=== PATIENT | female | born 1960 | race Caucasian/White ===

== ENCOUNTER → 2016-06-15 | Outpatient (CLI) | payer OTHER ==
[2015-05-12 14:20] VITALS: BP 101/66; PULSE 62
[~2016-06-15] MED LIST: ACET-1256 PO; BNT10 PO; LACTCAP PO; QSTP PO; RSPS5 PO; VNCS125 PO; ZOLP10TA PO
[2016-06-15 12:42] VITALS: BP 102/66; PULSE 64; TEMP 36.8; O2SAT 97
--- NOTE | 2016-06-15 13:58 | Radiation Oncology Follow-Up ---
Radiation Oncology Follow-Up Date of Visit Jun 15, 2016. Reason For Visit Annual follow-up Radiation Completion Date 07/07/14 Diagnosis (1) Breast cancer Status: Resolved Onset Date: 06/05/2013 Histology Subtype: ductal Stage: ll (A) Permanent Comment: Status post ultrasound-guided biopsy of the right breast revealing invasive ductal carcinoma grade 3 estrogen receptor negative progesterone receptor negative HER-2/kirsten negative Status post bilateral mastectomies with tissue expanders placed 07/08/2013. Stage [id number] BRCA1 testing positive Status post completion of chemotherapy comprised of Adriamycin and Cytoxan for 4 cycles followed by weekly Taxol for 12 weeks Chemotherapy from 08/26/2013 to 01/14/2014 Status post completion of radiation therapy 07/07/2014 received 6120 cGy Status post placement of bilateral implants November 2015 DT distance and removal of the right implant January 2016 Last Edited By: Kayy Law on Jun 15, 2016 13:51 History of Present Illness Ms. Killian is a 56-year-old female who has a strong family history of breast cancer. Her mother was diagnosed with a triple negative node negative breast cancer treated with surgery, chemotherapy and radiation. Her sister was also diagnosed with breast cancer. Because of this she was followed very closely with annual screening mammograms. These have remained unremarkable until recently. On 05/31/2013 she underwent annual screening mammograms. These were compared to prior images from 05/30/2012 and . The images of the right breast revealed an oval mass with circumscribed margins present in the upper outer quadrant. The left breast revealed no significant masses. This was given a category 0 with additional imaging recommended. Therefore on 06/04/2013 patient underwent a unilateral right digital diagnostic mammogram and targeted ultrasound. This revealed a solid mass measuring 0.7 x 0.9 x 0.8 cm at the 10 o' clock position of the right breast 5 cm from the nipple. These were felt to be suspicious and a biopsy was recommended. On 06/05/2013 patient underwent an ultrasound-guided biopsy of the right breast mammographic abnormality.. 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 This lesion was ER negative, SD negative and HER-2/ kirsten negative. Surgical evaluation was recommended. Given the patient's strong family history she decided to proceed with bilateral mastectomies and reconstruction with tissue expanders. This surgery was performed on July 082013. The right breast revealed residual infiltrating ductal carcinoma measuring 1.5 cm. The margins were negative with the nearest margin being the deep margin 7 mm from the carcinoma. Lymphovascular invasion was identified but no perineural invasion was noted. 2 sentinel lymph nodes were identified one of which contained a macro metastasis and additional 20 lymph nodes were removed with completion axillary dissection. All remaining nodes were negative. The final count was 1 lymph node out of 22 examined. The size of the deposit was 3.5 mm and no extranodal extension was identified. The left breast was examined and revealed an atypical epithelial proliferation consistent with a ductal carcinoma in situ. Case: [id number]. The staging of the right breast lesion was T1c N1 A ER negative SD negative HER-2/kirsten negative. The staging of the left breast was Tis Nx ER positive. The patient was seen by Dr. Edwin Gee for medical oncology evaluation. He ordered a staging PET/CT scan which was performed on 08/07/2013. This showed low level activity surrounding the surgical changes involving both chest wall. Low level uptake corresponds to postsurgical change in the right axilla. An FDG avid lymph node is noted in the upper mediastinum located between the superior vena cava and brachiocephalic artery with a maximum SUV of 4.99. Similar FDG avid lymph nodes are present within the prevascular, AP window, subcarinal, paratracheal and bilateral hilar chains. FDG uptake of the subcarinal lymph node has an SUV max of 6.8 and in the right hilum and SUV max of 6.8. Remainder of the study is unremarkable. BRCA1 and BRCA2 analysis was performed on the patient. She was positive for a germ line BRCA1 mutation. Her mother was subsequently tested and also tested positive. She underwent a bronchoscopy and ultrasoundguided biopsies of lymph node 7, right interlobar 11 R and left interlobar 12 L. All lymph node in the mediastinum were benign. Patient unfortunately developed an infection in the right breast implant requiring removal of the implant and initiation of systemic antibiotics. She underwent chemotherapy with Adriamycin and Cytoxan for 4 cycles this was then followed by weekly Taxol. She was treated from 08/26/2013 to 01/14/2014. Interim History In November 2015 she had removal of the tissue expanders and placement of the permanent implants. Unfortunately she developed an open area along the incision on the right. This area was surgically repaired. Unfortunately 3 small areas opened. She also developed diverticulosis and diverticulitis and required hospitalization. This was treated and she developed Clostridium difficile. She was hospitalized once again. Because of the wound opening's the implant was removed. The area then healed without difficulty. She had followed with Dr. Castrejon. Because of a change in her insurance she was not able to return to him in follow-up. She also had to change from Dr. Edwin Gee to Dr. Nava. She was seen in his office today. Allergies Coded Allergies: Erythromycin (Verified Allergy, Mild, RASH, 02/23/16) Sulfa Antibiotics (Verified Allergy, Mild, RASH, 02/23/16) Home Medications Scheduled Lactobacillus (Lactobacillus Extra Stren), 1 TAB PO TIDM Scheduled PRN Acetaminophen (Tylenol), 1,000 MG PO Q6 PRN for Pain Zolpidem Tartrate (Ambien), 10 MG PO HS PRN for Sleep Review of Systems Gastrointestinal: Symptoms: WNL Oral: Symptoms: No Problems Respiratory: Symptoms: WNL Urinary: Symptoms: WNL Skin: Symptoms: No Problems Other Skin Symptoms: thinned out - patient had to have implant removed due to scar opening Breast: Right Upper Arm Measurement: 28.2 Right Mid Arm Measurement: 26.4 Right Wrist Measurement: 15.9 Left Upper Arm Measurement: 24.7 Left Mid Arm Measurement: 21.0 Left Wrist Measurement: 15.0 Arm Dominence: Left Cosmetic Comments: patient had breast implants pt will have add surg Left make it smaller Physical Exam Vital Signs Date Time Temp Pulse Resp B/P Pulse Ox O2 Delivery O2 Flow Rate FiO2 06/15/16 12:42 36.8 64 16 102/66 97 Pain: Pain Onset: long time Pain Duration: intermet Pain Location: Back Patient Pain Scale: 0 - 10 Initial Pain Intensity: 4.0 Pain Description: Aching Fatigue: None General Appearance: no apparent distress Eyes: normal inspection, EOMI ENT: normal ENT inspection, hearing grossly normal Neck: no adenopathy, thyroid normal Respiratory/Chest: lungs clear, no respiratory distress, no accessory muscle use Breast: Breast examination reveals postmastectomy incision on the right. There is no erythema or edema. There is expected deficit centrally from removal of the implant. There are no masses or tenderness of the chest wall. There is no axillary adenopathy. Using the Emily score cosmesis she currently has a poor outcome. There is some mild resolving hyperpigmentation. On the left the implant is noted. There are no masses or tenderness no axillary adenopathy. Cardiovascular: regular rate, rhythm, no gallop, no murmur Abdomen: soft, + pertinent finding (very mild tenderness in the left lower quadrant) Extremities: no pedal edema Neurologic/Psychiatric: no motor/sensory deficits, alert, normal mood/affect Skin: warm/dry Lymphatic: no adenopathy Laboratory Studies Test 06/15/16 12:09 White Blood Count 6.14 K/uL (4.8-10.8) Red Blood Count 5.05 M/uL (4.2-5.4) Hemoglobin 13.8 g/dL (12.0-16.0) Hematocrit 40.4 % (37-47) Mean Corpuscular Volume 80.0 fL (80-100) Mean Corpuscular Hemoglobin 27.3 pg (25-34) Mean Corpuscular Hemoglobin Concent 34.2 g/dl (32-36) Platelet Count 270 K/uL (130-400) Mean Platelet Volume 9.7 fL (7.4-10.4) Neutrophils (%) (Auto) 58.7 % Lymphocytes (%) (Auto) 30.3 % Monocytes (%) (Auto) 6.4 % Eosinophils (%) (Auto) 4.1 % Basophils (%) (Auto) 0.3 % Neutrophils # (Auto) 3.61 K/uL (1.4-6.5) Lymphocytes # (Auto) 1.86 K/uL (1.2-3.4) Monocytes # (Auto) 0.39 K/uL (0.11-0.59) Eosinophils # (Auto) 0.25 K/uL (0-0.5) Basophils # (Auto) 0.02 K/uL (0-0.2) RDW Standard Deviation 38.7 fL (36.4-46.3) RDW Coefficient of Variation 13.3 % (11.5-14.5) Immature Granulocyte % (Auto) 0.2 % Immature Granulocyte # (Auto) 0.01 K/uL (0.00-0.02) Sodium Level 143 mmol/L (136-145) Potassium Level 4.1 mmol/L (3.5-5.1) Chloride Level 107 mmol/L (98-107) Carbon Dioxide Level 27 mmol/L (21-32) Anion Gap 9.0 mmol/L (3-11) Blood Urea Nitrogen 12 mg/dl (7-18) Creatinine 0.60 mg/dl (0.60-1.20) Estimated GFR () 118.9 Estimated GFR (Non- 102.6 BUN/Creatinine Ratio 19.8 (10-20) Random Glucose 85 mg/dl (70-99) Calcium Level 9.0 mg/dl (8.5-10.1) Total Bilirubin 0.4 mg/dl (0.2-1) Aspartate Amino Transferase (AST) 15 U/L (15-37) Alanine Aminotransferase (ALT) 21 U/L (12-78) Alkaline Phosphatase 73 U/L (45-117) Lactate Dehydrogenase 168 U/L (84-246) Total Protein 7.2 gm/dl (6.4-8.2) Albumin 3.8 gm/dl (3.4-5.0) Globulin 3.4 gm/dl (2.5-4.0) Albumin/Globulin Ratio 1.1 (0.9-2) Assessment & Plan Plan: Continue follow-up with Dr. Nava. She does wish to seek another opinion in regards to repair of the right chest wall. She is going to make an appointment with Dr. Delmis Arnold. She is also going to be followed by Dr. Herzog in the future. She will make a sooner appointment if she has increased pain in the left lower quadrant. Due to the insurance change. Recheck laboratory studies per Dr. Nava. We asked her to return to our office in 1 year. She may call if she has any questions or concerns in the interim. Total Time In Follow-Up I spent 20 minutes speaking to the patient and performing examination. I spent 15 minutes reviewing information in completing this note. Copy To Bernard Herzog M.D.; Chandler Nava MD; Delmis Arnold MD Problem Qualifiers (1) Breast cancer: Breast location: upper outer quadrant of breast Patient sex: female Laterality: right Qualified Codes: C50.411 - Malignant neoplasm of upper- outer quadrant of right female breast
== END | disposition home or self-care (01) ==
LOC: C.ONC 12:21
PROVIDERS: ATTEND Physician Assistant Medical
DX: Z08 Encounter for follow-up examination after completed treatment for malignant neoplasm (principal); Z92.3 Personal history of irradiation; Z85.3 Personal history of malignant neoplasm of breast

== ENCOUNTER → 2016-10-03 | Outpatient (CLI) | payer OTHER ==
[~2016-10-03] MED LIST changes: -BNT10 PO; -QSTP PO; -RSPS5 PO; -VNCS125 PO
== END | disposition home or self-care (01) ==
LOC: C.PAPS 12:22
PROVIDERS: ATTEND Obstetrics & Gynecology
DX: Z12.4 Encounter for screening for malignant neoplasm of cervix (principal)

== ENCOUNTER → 2016-10-12 | Outpatient (CLI) | payer OTHER ==
--- NOTE | 2016-10-12 13:05 | MAMMOGRAPHY REPORT ---
ULTRASOUND OF LEFT BREAST: 10/12/2016 CLINICAL HISTORY: 56-year-old woman with a personal history of right breast cancer status post bilate ral mastectomy and implant reconstruction. She is a history of complications with her right implant which has subsequently been removed. Family history of breast cancer = mother and personal history o f BRCA gene. She presents with a new palpable lump in the upper outer axillary tail of the reconstru cted left breast deep near the chest wall, kidney davidson in size and shape. COMPARISON: Comparison is made to exams dated: 06/05/2013 mammogram, 05/30/2012 mammogram, 11/12/2008 m ammogram, and 09/12/2006. FINDINGS: Targeted ultrasound was performed in the area of palpable lump pointed out by the patient (deep left axillary tail/posterior 1:00 axis abutting the superior surface of the implant) on palpati on, there is a soft 1 cm oval mass. On ultrasound in the area of concern there is a fold of the impl ant and it is unclear if this could BE correlating with the palpable concern. Also in the vicinity a re a morphologically normal lymph node measuring 8.8 mm in length, and another possible smaller lymph node. No suspicious solid or cystic mass is identified. IMPRESSION: ACR BI-RADS CATEGORY 0: INCOMPLETE EVALUATION: NEED ADDITIONAL IMAGING EVALUATION - FOLL OW-UP RECOMMENDED There is no suspicious sonographic abnormality correlating with the palpable lump in the left axillar y tail. However, given the deep location of the palpable abnormality, history of mastectomy and impl ant reconstruction, also personal history of BRCA gene and right breast cancer, further evaluation wi th a contrast-enhanced bilateral breast MRI is recommended. These results and recommendations were discussed with the patient at the time of the exam. Jackie Cummings M.D. ay/:10/12/2016 09:09:25 Resolute Professional: Lola DONOHUE)(Meg), [facility] letter sent: Addl Imaging 0 BI-RADS Code: ACR BI-RADS Category 0: Incomplete Evaluation: Need Additional Imaging Evaluation
== END | disposition home or self-care (01) ==
LOC: C.MAMM 08:30
PROVIDERS: ATTEND Physician Assistant Medical
DX: N63 Unspecified lump in breast (principal); Z98.82 Breast implant status; Z85.3 Personal history of malignant neoplasm of breast; Z80.3 Family history of malignant neoplasm of breast

== ENCOUNTER → 2016-10-25 | Outpatient (CLI) | payer OTHER ==
[~2016-10-25] MED LIST changes: +GADAVIST IV PRN
--- NOTE | 2016-10-26 07:39 | MAMMOGRAPHY REPORT ---
BREAST MRI OF BOTH BREASTS : 10/25/2016 CLINICAL HISTORY: 56-year-old woman with a history right breast cancer and BRCA gene status post bila teral mastectomy in June 2013, with silicone implant reconstruction. Recent right implant complicat ion and subsequent removal. She presented 10/12/2016 for evaluation of a palpable lump in the axilla ry tail of the left breast. Targeted ultrasound demonstrated a morphologically normal lymph node but no other suspicious abnormality. MRI was recommended given the deep location of the palpable lump. COMPARISON: Comparison is made to exams dated: 10/12/2016 ultrasound - [facility], 06/05/2013 mammogram, 06/04/2013 mammogram, and 05/30/2012 mammogram. TECHNIQUE: Using a 1.5 Kajal magnet and dedicated breast coil, multisequence axial images were obtain ed through the breasts. After uneventful IV administration of 5.4 mL of Gadavist, dynamic multiphase contrast-enhanced axial images, and sagittal postcontrast were obtained. Temporal subtraction axial images and 3-D MIP images are provided. Everything was then reviewed on a 3-D workstation, Tap[employer]wd. Additional MRI sequences in the axial and sagittal plane were obtained to assess implant integrity. FINDINGS: Status post bilateral mastectomy, with a left breast silicone implant reconstruction. No i mplant is present on the right. The left-sided implant is intact, without evidence of intracapsular or extracapsular rupture. There are a few morphologically normal lymph nodes within the left axilla and axillary tail as well as tiny lymph nodes along the posterior lateral aspect of the left implant. No suspicious lymphadenopathy is seen within the left axillary, subpectoral or internal mammary shirley in. No suspicious right axillary, subpectoral or internal mammary lymphadenopathy is identified. Th ere is no evidence of a suspicious enhancing mass, focal skin thickening or other abnormal enhancemen t in the axillary tail in the area of palpable lump. No focal skin thickening of the left breast. T here is no focal skin thickening or subcutaneous enhancing mass along the right chest wall. Incidental note is made of an accessory azygos lobe in the right lung. IMPRESSION: ACR BI-RADS CATEGORY 2: BENIGN 1. There is no evidence of a suspicious enhancing mass or suspicious lymphadenopathy to correlate wi th the palpable concern near the left axillary tail. Continued clinical monitoring is recommended. 2. Overall, no MRI evidence of malignancy bilaterally. No suspicious lymphadenopathy in the axillar y, subpectoral or internal mammary chains. The patient will receive written notification of the results. Jackie Cummings M.D. ay/:10/25/2016 21:39:37 Foot Press Operator: roustabout crew leader, [facility] letter sent: Normal 1/2 BI-RADS Code: ACR BI-RADS Category 2: Benign
== END | disposition home or self-care (01) ==
LOC: C.MRI 10:37
PROVIDERS: ATTEND Physician Assistant Medical
DX: Z85.3 Personal history of malignant neoplasm of breast (principal); Z98.82 Breast implant status; N63 Unspecified lump in breast

== ENCOUNTER → 2016-11-08 | Outpatient (CLI) | payer OTHER ==
[~2016-11-08] MED LIST changes: -GADAVIST IV PRN; +OPTIRAY 320 IV PRN
--- NOTE | 2016-11-08 16:03 | DIAGNOSTIC IMAGING REPORT ---
CT SCAN OF THE ABDOMEN AND PELVIS WITH IV CONTRAST CLINICAL HISTORY: Diarrhea. COMPARISON STUDY: Abdominal CT dated 02/23/2016. TECHNIQUE: Following the IV administration of 92 cc of Optiray 320, CT scan of the abdomen and pelvis is performed from the lung bases to the proximal femora. Images are reviewed in the axial, sagittal, and coronal planes. IV contrast was administered without complication. Automated dose control exposure was utilized. A dose lowering technique was utilized adhering to the principles of ALARA. CT DOSE: 259.52 mGy.cm FINDINGS: Lung bases: The heart is normal in size and without pericardial effusion. The lung bases are clear. The right breast is surgically absent and a prosthesis is in place. A left breast implant is identified. Liver: The contrast-enhanced liver is normal in size, contour, and attenuation. Fatty infiltration is seen adjacent to the falciform ligament. There is no intrahepatic biliary ductal dilatation. The hepatic veins and portal veins are patent. Gallbladder: Unremarkable. Spleen: Normal in size and attenuation. Pancreas: Unremarkable. Adrenal glands: A coarse calcification is incidentally noted in the left adrenal gland. The adrenal glands are otherwise normal in appearance. Kidneys: The contrast enhanced kidneys are normal in size and without hydronephrosis. The kidneys enhance symmetrically. Scattered subcentimeter cortical hypodensities likely represent tiny cysts but are too small for definitive characterization. Abdominal vasculature: The abdominal aorta is normal in course and caliber. Bowel: The small bowel and colon are normal in course and caliber. Moderate colonic fecal retention is observed. There is moderate diverticulosis of the sigmoid colon without clear CT evidence of acute diverticulitis. Wall thickening in the sigmoid region is likely related to chronic diverticular disease. There is wall thickening and edema identified throughout the right colon, greatest in the cecum. Mild pericolonic inflammation is observed. The appearance is consistent with a nonspecific colitis. The appendix is well-visualized and normal. Peritoneum: There is no intraperitoneal free air or abdominal ascites. There is a small fat-containing umbilical hernia. Lymphadenopathy: None. Pelvic viscera: The bladder, uterus, and adnexa are normal as visualized. Skeletal structures: No lytic or blastic lesions are seen. IMPRESSION: 1. Findings are consistent with a nonspecific colitis of the right colon, likely on an infectious or inflammatory basis in this age group. Clinical correlation will be required. 2. Moderate sigmoid diverticulosis without CT evidence of acute diverticulitis. Mild wall thickening in the sigmoid colon is likely related to chronic diverticular disease. 3. The right breast is surgically absent. 4. Additional findings as above. Electronically signed by: Robbie Gamble M.D. 11/08/2016 4:01 PM Dictated Date/Time: 11/08/2016 3:53 PM
== END | disposition home or self-care (01) ==
LOC: C.CTS 13:40
PROVIDERS: ATTEND Physician Assistant Medical
DX: R19.7 Diarrhea, unspecified (principal); K57.30 Diverticulosis of large intestine without perforation or abscess without bleeding; Z90.11 Acquired absence of right breast and nipple

== ENCOUNTER 2018-12-13 07:01 | Inpatient (IN) ==
--- NOTE | 2018-11-21 16:38 | PAT Medication Instructions ---
Medication Instructions Date of Service November 21, 2018 Home Medications Medication Instructions Recorded zolpidem 5 mg tablet 5 mg PO HS PRN #30 tab 11/06/18 zolpidem 5 mg tablet 5 mg PO HS PRN Thrive Le-Michele 2 cap PO QAM STOP taking 2 weeks before surgery If surgery is within 2 weeks, stop taking as soon as possible. Thrive Le-Michele 2 cap PO QAM Take evening before surgery zolpidem 5 mg tablet 5 mg PO HS PRN (if needed) Other Notes If you have any questions please call us at [phone] or [phone] or [phone] or [phone]
--- NOTE | 2018-11-22 08:24 | Anesthesiology Consultation ---
Date of Service November 22, 2018 Assessment & Plan (1) Encounter for pre-operative examination: Chart Review Chart Review: Acceptable Risk for Surgery and Patient seen in Pre Admission Testing Teaching & Discussion Instructed NPO after midnight before surgery, except medications with 15 cc of water. Medication instructions provided according to the PAT guidelines. History Surgery Operation Date: 12/13/18 07:00 Proposed Procedures p Laparoscopic Sigmoid Colon Resection - Chaim Young, Height/Weight Height: 5 ft 1 in Weight: 56.3 kg Allergies Allergy/AdvReac Type Severity Reaction Status Date / Time erythromycin base Allergy Mild RASH Verified 11/15/18 09:20 Sulfa (Sulfonamide Allergy Mild RASH Verified 11/15/18 09:20 Antibiotics) Medications Home Medications Medication Instructions Recorded Confirmed Last Taken zolpidem 5 mg tablet 5 mg PO HS PRN #30 tab 11/06/18 11/15/18 Unknown Thrive Le-Michele 2 cap PO QAM 11/15/18 11/15/18 Unknown Past Medical History Medical History BRCA1 gene mutation positive (Chronic) Diverticulosis (Chronic) Insomnia (Chronic) Invasive ductal carcinoma of right breast (Resolved) Triple negative breast cancer 2013, s/p chemo, + b/l mastectomy, +XRT History of diverticulitis (Resolved) GERD (gastroesophageal reflux disease) (Chronic) Sarcoidosis (Resolved) Asymptomatic. Suspected based on PET scans positive for uptake but negative biopsies for cancer. Lymphedema (Chronic) RT ARM, s/p multiple procedures to reduce symptoms Breast cancer 2013, s/p b/l mastectomy and chemo and XRT. Former smoker Exercise / Class Metabolic Activity II 4-5 Yardwork/Stairs/Walk up hill (denies CP or SOB with 1 FOS, pt used to run regularly but has not x 8 months due to recent surgeries) Past Surgical History Surgical History H/O bilateral oophorectomy History of bronchoscopy History of colonoscopy History of esophagogastroduodenoscopy (EGD) History of mastectomy DOUBLE WITH "NUMEROUS RECONSTRUCTION SURGERY" History of tonsillectomy History of tooth extraction History of vascular access device INSERTION AND REMOVAL Nausea and vomiting after administration of anesthetic agent WITH GENERAL Past Anesthesia History No Hx of Anesthesia Complications (other than PONV) and No Family Hx of Anesthesia Complications History of PONV No Hx of Motion Sickness and History of PONV Social History Smoking Status: Former smoker (VERY light smoker, socially) tobacco type: cigarettes Do You Dip or Chew Tobacco: No Smoking End Date: none x 20 yrs Hx Alcohol Use: Yes Alcohol type: wine alcohol intake frequency: a few times a month Hx Substance Use: No substance use type: does not use Review of Systems Pt denies any recent chest pain, shortness of breath, palpitations, cough, fever or URI. +sore throat today, very mild, using cough drops. Physical Exam Vital Signs BP: 115/73 P: 54bpm SPO2: 98% RA T: 98.1 F R: 12 ENMT Mouth: + dentures (partial upper); no chipped teeth and no loose teeth Thyromental Distance: > or= 3.5 Finger Breadths (3.5) Mallampati Class: II Neck normal visual inspection; neck extension not limited Respiratory normal respiratory effort Auscultation: lungs clear to auscultation bilaterally Cardiovascular Rate/Rhythm: regular rhythm and + bradycardic Heart Sounds: no murmur Extremities: no edema Testing Laboratory Results 11/22/18 08:31 11/22/18 08:31 Blood Type A Positive 11/22/18 08:31 Antibody Screen NEGATIVE 11/22/18 08:31 Electrocardiogram Date: 06/20/18 Findings: + NSR @ (62) Echocardiogram Date: 07/25/13 EF: 64% Normal LV chamber size wall thickness. Normal LV systolic function without regional wall motion of normality. Grade 1 diastolic dysfunction. No significant valvular pathology. Stress Test Date: 03/05/15 Type: exercise Resting EF: 55-59% Examination is adequate to evaluate the referral indication. The exercise echocardiographic examination is normal without resting LV wall motion of apple lities or inducible ischemia. Exercise capacity is above average. Heart rate response to stress was normal. Stress EKG response was normal. No arrhythmias were noted with stress. LV wall motion with stress is normal. LV systolic function is normal. No significant valvular disease present.
[2018-11-22 10:53] LABS: Basophils # (auto) 0.02 K/uL (0-0.2); Basophils % (auto) 0.5 %; Eosinophils # (auto) 0.23 K/uL (0-0.5); Eosinophils % (auto) 5.2 %; Hematocrit (blood only) 39.2 % (37-47); Hemoglobin 13.2 g/dL (12.0-16.0); Immature Granulocytes # (auto) 0.01 K/uL (0.00-0.02); Immature Granulocytes % (auto) 0.2 %; Lymphocytes # (auto) 1.08 K/uL (1.2-3.4); Lymphocytes % (auto) 24.3 %; Mean Corpuscular Hemoglobin 27.9 pg (25-34); Mean Corpuscular Hgb Conc 33.7 g/dL (32-36); Mean Corpuscular Volume 82.9 fL (80-100); Mean Platelet Volume 10.3 fL (7.4-10.4); Monocytes # (auto) 0.34 K/uL (0.11-0.59); Monocytes % (auto) 7.7 %; Neutrophils # (auto) 2.76 K/uL (1.4-6.5); Neutrophils % (auto) 62.1 %; Platelet Count 202 K/uL (130-400); RDW Coefficient of Variation 13.3 % (11.5-14.5); RDW Standard Deviation 40.2 fL (36.4-46.3); Red Blood Count 4.73 M/uL (4.2-5.4); White Blood Count 4.44 K/uL (4.8-10.8)
[2018-11-22 11:19] LABS: BUN Creatinine Ratio 16.1 (10-20); Calcium 8.7 mg/dl (8.5-10.1); Creatinine Clr Calc Pharmacy 67.9 ml/min; Est GFR (Non-African American) 96.6; Potassium 4.3 mmol/L (3.5-5.1)
[~2018-12-13 07:01] MED LIST changes: -ACET-1256 PO; +CEFAZOLIN 2000MG 2,000 MG/15 ML SYR IV SCH; -LACTCAP PO; +LR 15ML/HR IV SCH; -OPTIRAY 320 IV PRN; +SCOPOLAMINE 1.5 MG TDSY TD SCH; -ZOLP10TA PO
--- NOTE | 2018-12-13 07:43 | Anesthesiology Consultation ---
Date of Service December 13, 2018 Assessment & Plan (1) Encounter for pre-operative examination: Chart Review Chart Review: Acceptable Risk for Surgery Consults Requested none ASA ASA2 Proposed Anesthesia Anesthesia Type: General Risk / Benefits Reviewed With: PT / POA / Parent / Guardian, Accepts Plan and Informed Consent Obtained History Surgery Operation Date: 12/13/18 08:30 Proposed Procedures p Laparoscopic Sigmoid Colon Resection - Chaim Young DO Height/Weight Height: 5 ft 1 in Weight: 56.3 kg Allergies Allergy/AdvReac Type Severity Reaction Status Date / Time erythromycin base Allergy Mild RASH Verified 12/11/18 09:56 Sulfa (Sulfonamide Allergy Mild RASH Verified 12/11/18 09:56 Antibiotics) Medications Home Medications Medication Instructions Recorded Confirmed Last Taken Thrive Le-Michele 2 cap PO QAM 11/15/18 12/11/18 12/01/18 08:00 zolpidem 5 mg tablet 5 mg PO HS PRN #30 tab 12/10/18 12/11/18 12/08/18 22:00 NPO Date Last Intake of Fluids: 12/12/18 Time Last Intake of Fluids: 23:00 Date Last Intake of Solids: 12/09/18 Time Last Intake of Solids: 18:00 Past Medical History Medical History BRCA1 gene mutation positive (Chronic) Diverticulosis (Chronic) Insomnia (Chronic) Invasive ductal carcinoma of right breast (Resolved) Triple negative breast cancer 2013, s/p chemo, + b/l mastectomy, +XRT History of diverticulitis (Resolved) GERD (gastroesophageal reflux disease) (Chronic) Sarcoidosis (Resolved) Asymptomatic. Suspected based on PET scans positive for uptake but negative biopsies for cancer. Lymphedema (Chronic) RT ARM, s/p multiple procedures to reduce symptoms Breast cancer 2013, s/p b/l mastectomy and chemo and XRT. Former smoker Exercise / Class Metabolic Activity 1 > 8 Run/Swim/Ski/Tennis Past Family History Family History Mother Diabetes Breast cancer Ovarian cancer Father Gallbladder disease Unknown Prostate cancer Grandfather Prostate cancer Other No family history of adverse response to anesthesia Past Surgical History Surgical History History of vascular access device INSERTION AND REMOVAL H/O bilateral oophorectomy History of bronchoscopy History of colonoscopy History of esophagogastroduodenoscopy (EGD) History of mastectomy DOUBLE WITH "NUMEROUS RECONSTRUCTION SURGERY" History of tonsillectomy History of tooth extraction Nausea and vomiting after administration of anesthetic agent WITH GENERAL Past Anesthesia History No Hx of Anesthesia Complications and No Family Hx of Anesthesia Complications History of PONV No Hx of PONV and No Hx of Motion Sickness Social History Smoking Status: Former smoker (VERY light smoker, socially) tobacco type: cigarettes Do You Dip or Chew Tobacco: No Smoking End Date: none x 20 yrs Hx Alcohol Use: Yes Alcohol type: wine alcohol intake frequency: a few times a month Hx Substance Use: No substance use type: does not use Physical Exam ENMT Mouth: no dentition abnormality Thyromental Distance: > or= 3.5 Finger Breadths Mallampati Class: II Neck normal visual inspection Respiratory normal respiratory effort Auscultation: lungs clear to auscultation bilaterally Cardiovascular Rate/Rhythm: regular rate and regular rhythm Testing Laboratory Results 11/22/18 08:31 11/22/18 08:31 Blood Type A Positive 11/22/18 08:31 Antibody Screen NEGATIVE 11/22/18 08:31 Electrocardiogram Date: 06/20/18 Findings: + NSR @ (62) Echocardiogram Date: 07/25/13 EF: 64% Normal LV chamber size wall thickness. Normal LV systolic function without regional wall motion of normality. Grade 1 diastolic dysfunction. No significant valvular pathology. Stress Test Date: 03/05/15 Type: exercise Resting EF: 55-59% Examination is adequate to evaluate the referral indication. The exercise echocardiographic examination is normal without resting LV wall motion of apple lities or inducible ischemia. Exercise capacity is above average. Heart rate response to stress was normal. Stress EKG response was normal. No arrhythmias were noted with stress. LV wall motion with stress is normal. LV systolic function is normal. No significant valvular disease present.
[2018-12-13] MEDS ORDERED: ATROPINE SULFATE 0.1 MG/ML 10ML SYR IV PRN (07:44)
[2018-12-13] MEDS ORDERED: ONDANSETRON INJ 2 MG/ML 2 ML VIAL IV PRN ×2 (07:44→12:42)
[2018-12-13] MEDS ORDERED: ePHEDrine sulfate 50 MG/ML AMP IV PRN (07:44)
[2018-12-13] MEDS ORDERED: fentaNYL citrate 100 MCG/2 ML VIAL ONE (07:46)
[2018-12-13] MEDS ORDERED: MIDAZOLAM HCL 1 MG/ML 2ML VIAL ONE (07:46)
--- NOTE | 2018-12-13 08:22 | History & Physical Report ---
Date of Service December 13, 2018 Assessment & Plan (1) Nodule of colon: With a long discussion with her options. We discussed the risks of the surgery which include bleeding, infection, anastomotic leak or stricture, DVT, PE, CO, CVA, injury to another organ such as bowel or ureter etc. Following our discussion I answered all their questions. We will proceed this morning with a laparoscopic possible open sigmoid colon resection. (2) History of diverticulitis: History of Present Illness Primary Care Provider: Kaylee Fernandes MD 58-year-old female with a history of multiple bouts of acute diverticulitis. On top of that during her recent colonoscopy she was found to have a sigmoid nodule which when biopsied showed spindle cells. After discussion we decided the prudent thing would be to do an elective sigmoid colon resection to rid her of the diverticulitis area as well as the nodule. She had a colonoscopy earlier this week with a tattooing of the nodule. Allergies Allergy/AdvReac Type Severity Reaction Status Date / Time erythromycin base Allergy Mild RASH Verified 12/13/18 07:49 Sulfa (Sulfonamide Allergy Mild RASH Verified 12/13/18 07:49 Antibiotics) Home Medications Home Medications Medication Instructions Recorded Confirmed Type Thrive Le-Michele 2 cap PO QAM 11/15/18 12/13/18 History zolpidem 5 mg tablet 5 mg PO HS PRN #30 tab 12/10/18 12/13/18 Rx Past Med/Surg History Medical History BRCA1 gene mutation positive (Chronic) Diverticulosis (Chronic) Insomnia (Chronic) Invasive ductal carcinoma of right breast (Resolved) Triple negative breast cancer 2013, s/p chemo, + b/l mastectomy, +XRT History of diverticulitis (Resolved) GERD (gastroesophageal reflux disease) (Chronic) Sarcoidosis (Resolved) Asymptomatic. Suspected based on PET scans positive for uptake but negative biopsies for cancer. Lymphedema (Chronic) RT ARM, s/p multiple procedures to reduce symptoms Breast cancer 2013, s/p b/l mastectomy and chemo and XRT. Former smoker Surgical History History of vascular access device INSERTION AND REMOVAL H/O bilateral oophorectomy History of bronchoscopy History of colonoscopy History of esophagogastroduodenoscopy (EGD) History of mastectomy DOUBLE WITH "NUMEROUS RECONSTRUCTION SURGERY" History of tonsillectomy History of tooth extraction Nausea and vomiting after administration of anesthetic agent WITH GENERAL Family History Mother Diabetes Breast cancer Ovarian cancer Father Gallbladder disease Unknown Prostate cancer Grandfather Prostate cancer Other No family history of adverse response to anesthesia Social History Preferred Language: Kinyarwanda Communication Ability: Effective Visual Impairment: Limited Hearing Ability: Hard of Hearing Automatic Lathe Operator Required: No Beliefs That Will Affect Care: None Current Living Situation: Spouse and Family Current Living Situation Comment: Lives with and kids Other Information That Helps Us Care for You: No Feels Safe at Home: Yes Safety Concerns: Feels Safe At This Time Smoking Status: Former smoker (VERY light smoker, socially) Tobacco Type: cigarettes ; Do You Dip or Chew Tobacco: No ; Smoking End Date: none x 20 yrs ; Second Hand Exposure: No ; Tobacco Cessation Education Requested by Patient: No Hx Alcohol Use: Yes Alcohol type: wine Hx Substance Use: No Review of Systems All systems reviewed & are unremarkable except as noted in HPI & below Physical Exam Constitutional: WD/WN, vitals as above no acute distress and not ill appearing Eyes: PERRL, conjunctivae normal, anicteric sclerae EOM intact bilaterally ENMT: external ear and nose normal, oropharynx normal Ears: no hearing impairment Neck: trachea midline, no thyromegaly Respiratory: normal respiratory effort; no respiratory distress and does not use accessory muscles Cardiovascular: Rate/Rhythm: regular rate and regular rhythm Gastrointestinal (Abdomen): normal bowel sounds, soft, nontender, no hepatosplenomegaly Skin: no rashes, warm and dry Psychiatric: Orientation: alert, oriented x 3 and cooperative Results & Data Vital Signs (Past 12 Hours) Vital Signs Temp Pulse Resp BP Pulse Ox 12/13/18 07:59 36.7 C 66 20 137/85 100
[2018-12-13] MEDS ORDERED: BUPIVACAINE/EPINEPHRINE 0.5% MPF 1:200,000 30 ML VIAL ONE (08:40)
[2018-12-13] MEDS ORDERED: LIDOCAINE HCL 2% 2 ML VIAL/AMP(20MG/ML) INFIL ONE (09:43)
[2018-12-13] MEDS ORDERED: PROPOFOL IV EMULSION 10 MG/ML 20 ML VIAL IV ONE (09:43)
[2018-12-13] MEDS ORDERED: LARYING-O-JET KIT (LTA) ONE (09:43)
[2018-12-13] MEDS ORDERED: KETOROLAC 30 MG/ML VIAL ONE (09:43)
[2018-12-13] MEDS ORDERED: ONDANSETRON INJ 2 MG/ML 2 ML VIAL ONE (09:43)
[2018-12-13] MEDS ORDERED: ePHEDrine sulfate 50 MG/ML SYR ONE (09:43)
[2018-12-13] MEDS ORDERED: HYDROmorphone INJ 2 MG/ML SYR/VIAL ONE (09:43)
[2018-12-13] MEDS ORDERED: NEOSTIGMINE METHYLSULFATE 5 MG/5 ML SYR ONE (09:43)
[2018-12-13] MEDS ORDERED: GLYCOPYRROLATE 0.2 MG/ML VIAL ONE (09:43)
[2018-12-13] MEDS ORDERED: PHENYLEPHRINE 100MCG/ML 5ML SYR ONE (09:43)
[2018-12-13] MEDS ORDERED: DEXAMETHASONE SOD INJ 4 MG/ML VIAL ONE (09:43)
[2018-12-13] MEDS ORDERED: ROCURONIUM BROMIDE 10 MG/ML 5 ML VIAL ONE (09:43)
[2018-12-13] MEDS: fentaNYL citrate 100 MCG/2 ML VIAL IV PRN ×2 (11:28→11:33)
--- NOTE | 2018-12-13 11:31 | Operative Report ---
Post Operative Report Pre & Post Diagnosis Operation Date: 12/13/18 08:30 Pre-Op Diagnosis: Diverticulitis, Sigmoid Nodule Post-Op Diagnosis: Diverticulitis, Sigmoid Nodule; epigastric hernia Procedure Operation Date: 12/13/18 08:30 Actual Procedures p Laparoscopic Sigmoid Colon Resection and Sigmoidoscopy repair of epigastric hernia - Chaim Young DO Surgeon Chaim Young DO Juvenile Justice Specialist Dr. Vlad MD. Andria Cordoba Estimated Blood Loss 20 Findings Consistent with Post-Op Diagnosis Specimens sigmoid colon Description of Procedure After informed consent was obtained the patient was taken to the operating room and placed in supine position. After successful intubation a Batres catheter was placed and the patient was placed in a low lithotomy position in yellowfin stirrups. The perineum was sterilely prepped and draped with Betadine solution and the abdomen was sterilely prepped and draped with chlorhexidine solution. I began by making a supraumbilical incision with an 11 blade scalpel and carried this down through the soft tissue using cautery. I encountered a supraumbilical epigastric hernia. I excised the hernia sac and extended the hernia defect inferiorly with cautery. I then placed 0 Vicryl stay sutures in the edges of the fascial defect. Finger penetration was performed and a finger sweep was performed to take down any underlying adhesions. A 12 mm Perez trocar was placed in the abdomen was insufflated to 18 mmHg. Laparoscope was inserted and the abdomen was examined in 360 degrees. There was tattoo ink in the lower abdomen. I placed a right lower quadrant 12 mm port and a right mid abdominal 5 mm port. Eventually we would place a left lower quadrant 5 mm port. The patient was placed in a steep Trendelenburg position and slightly air planed to the left. I began by looking at the left and sigmoid colon. We followed this down in the pelvis where we identified the tattoo ink placed by clem astroenterologkike. I began by using the harmonic scalpel to take down the white line of Toldt. We extended this up almost to the spleen and then inferiorly down past the peritoneal reflection. We used blunt dissection to free this up as well. I was able to identify the left ureter to keep it out of harm's way. There was obvious area of thickened colon consistent with her history of diverticulitis. We marked a spot on normal appearing colon proximal to this thickened area with 3-0 Polysorb stitch. Next I made a window in the mesentery of the sigmoid colon and extend this down over the pelvic brim again using the harmonic scalpel. Once I was below the area of the tattoo maricarmen I then used a TARA purple cartridge linear stapler to transect the colon. Once I had it completely transected I used the harmonic scalpel to take down the mesentery of the colon up to the area of the marking stitch. We then grabbed the staple end of the colon and extended the left lower quadrant port site incision using a fresh scalpel and cautery. We opened the fascia and used towels to wall off the incision. We then delivered the colon onto the abdominal wall. We then placed a bowel clamp proximal to the marking stitch and transected the colon using a Douglas scissor. This was passed off to the back table. We sent it for frozen section to ensure that this was the lesion previously biopsied. Pathology would later call into the room and it was in fact the same nodule that was previously biopsied by gastroenterology. At this point Dr. Chu scrubbed in and assisted with the anastomosis portion of the procedure. We used 2-0 silk to create a pursestring. I then used sizers to estimate the lumen size of the colon to be 25 mm. The anvil of a 25 mm circular stapler was placed into the end of the colon and secured using the pursestring device. This was then placed back into the abdominal cavity. I opened the colon on the back table to ensure that we had the nodule prior to sending it for frozen section. It was at this point that we changed our gowns and gloves. We then closed the fascia this incision using 0 PDS in running fashion. The wound was irrigated and closed using 3-0 Vicryl and 4-0 Monocryl. We then reinsufflated the abdomen. The anvil easily laid tension-free over the pelvic brim. After evaluating the rectal stump with sizers we then advanced a 25 mm EEA handle into the rectal stump. We deployed the spike anterior to the staple line. We then connected it to the anvil and they were secured together. The anastomosis was tension-free. We fired it creating a circular functional end to side anastomosis. When we removed the stapler both donuts were intact. We then filled the pelvis with irrigant. I used graspers to clamp off colon proximal to the anastomosis and using a rigid sigmoidoscope we insufflated the anastomosis. It was completely airtight with no evidence of a leak. We then thoroughly irrigated the lower abdomen. There was adequate hemostasis. A 10 flat Gwyn-Vasquez drain was placed into the pelvis and brought out through the right lower quadrant trocar site and secured to the skin using 2-0 nylon. All the trochars were removed and the abdomen was desufflated. The epigastric hernia was closed using 0 Vicryl in a [id number] fashion. Wounds were all irrigated and closed using 4-0 Monocryl. Marcaine was injected around all the incisions for postoperative analgesia and skin glue used as a dressing. The patient was placed back into a supine position extubated and transferred to recovery in stable condition. My physician prosthetics assistant was present for the entire case. She assisted with prepping the patient as well as with running the camera assisted with portions of the anastomosis as well as wound closure and dressing placement. I attest to the content of the Intraoperative Record and any orders documented therein. Any exceptions are noted below.
--- NOTE | 2018-12-13 12:37 | Anesthesiology Progress Note ---
Date of Service December 13, 2018 Anesthesia Post Procedure Vital Signs Vital Signs: Temp Pulse Pulse Resp BP Pulse Ox 12/13/18 12:05 97.5 F L 51 L 15 106/62 100 12/13/18 11:55 97.5 F L 55 L 15 119/62 100 12/13/18 11:45 97.3 F L 561 H 10 L 100/53 L 100 12/13/18 11:35 97.3 F L 53 L 14 106/60 100 12/13/18 11:25 97.3 F L 58 L 13 140/51 L 100 12/13/18 11:16 97.3 F L 66 16 138/91 99 12/13/18 07:59 98.1 F 66 20 137/85 100 Pain Intensity Abdomen: Pain Intensity: 3 Transfer of Care Handoff Completed per policy Notes Mental Status: alert / awake / arousable and participated in evaluation Patient Amnestic to Procedure: Yes Nausea / Vomiting: adequately controlled Pain: adequately controlled Airway Patency, RR, SpO2: stable & adequate BP & HR: stable & adequate Hydration State: stable & adequate Anesthetic Complications: no major complications apparent and Pt Satisfied with anesthetic care
[2018-12-13] MEDS ORDERED: HYDROmorphone HCL 0.5MG/ML 50 ML CASSETTE IV PRN (12:42)
[2018-12-13] MEDS: LACTATED RINGER'S 1,000 ML IV SCH ×2 (13:11→21:11)
[2018-12-13] MEDS: ACETAMINOPHEN 1,000 MG/100 ML VIAL IV SCH ×2 (13:12→21:56)
[2018-12-13] MEDS ORDERED: CHECK SCOPOLAMINE PATCH PLACEMENT SCH (16:00)
[2018-12-13] MEDS: CEFAZOLIN 2000MG 2,000 MG/15 ML SYR IV SCH (17:39)
[2018-12-14] MEDS: CEFAZOLIN 2000MG 2,000 MG/15 ML SYR IV SCH ×2 (01:53→08:03)
[2018-12-14] MEDS: ACETAMINOPHEN 1,000 MG/100 ML VIAL IV SCH ×3 (05:25→21:31)
[2018-12-14] MEDS: LACTATED RINGER'S 1,000 ML IV SCH ×3 (05:25→21:34)
[2018-12-14 07:56] LABS: Basophils # (auto) 0.01 K/uL (0-0.2); Basophils % (auto) 0.1 %; Eosinophils # (auto) 0.02 K/uL (0-0.5); Eosinophils % (auto) 0.3 %; Hematocrit (blood only) 31.8 % (37-47); Hemoglobin 10.9 g/dL (12.0-16.0); Immature Granulocytes # (auto) 0.01 K/uL (0.00-0.02); Immature Granulocytes % (auto) 0.1 %; Lymphocytes # (auto) 1.68 K/uL (1.2-3.4); Mean Corpuscular Hgb Conc 34.3 g/dL (32-36); Mean Corpuscular Volume 81.7 fL (80-100); Mean Platelet Volume 9.5 fL (7.4-10.4); Monocytes # (auto) 0.56 K/uL (0.11-0.59); Neutrophils # (auto) 5.71 K/uL (1.4-6.5); Neutrophils % (auto) 71.5 %; Platelet Count 177 K/uL (130-400); RDW Standard Deviation 38.5 fL (36.4-46.3); Red Blood Count 3.89 M/uL (4.2-5.4); White Blood Count 7.99 K/uL (4.8-10.8)
--- NOTE | 2018-12-14 08:04 | Surgery Progress Note ---
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 start ibuprofen d/c scopolamine b/c of dry mouth awaiting bowel fx. [facility] covering for weekend. Subjective pt POD 1 from lap sigmoid. doing well. 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 pain improving. no nausea currently. Physical Exam 2 Physical Exam: alert. nad abd: soft. expected tenderness. AILNY serous. Results & Data Vital Signs (Past 12 Hours) Vital Signs Temp Pulse Resp BP Pulse Ox 12/14/18 03:54 37.5 C 69 16 98/51 L 94 12/13/18 23:55 37.1 C 57 L 16 101/60 98 12/13/18 20:10 36.6 C 73 17 112/69 96 PG Care Time/CCT Total # of Minutes Spent Total Time Spent with Patient: Total time spent is greater than 50% in coordination of care (as documented) at patient's floor/unit and/or counseling patient:
[2018-12-14] MEDS: ENOXAPARIN INJ 40 MG/0.4 ML SYR SQ SCH (08:05)
--- NOTE | 2018-12-14 08:18 | Anesthesiology Progress Note ---
Date of Service December 14, 2018 Anesthesia Post Procedure Vital Signs Vital Signs: Temp Pulse Pulse Resp BP Pulse Ox 12/14/18 07:55 37.0 C 70 18 100/62 96 12/14/18 03:54 37.5 C 69 16 98/51 L 94 12/13/18 23:55 37.1 C 57 L 16 101/60 98 12/13/18 20:10 36.6 C 73 17 112/69 96 12/13/18 15:18 36.4 C L 70 17 101/66 100 12/13/18 14:34 36.5 C 61 16 100/63 100 12/13/18 13:20 66 16 108/68 100 12/13/18 13:00 64 16 107/65 100 12/13/18 12:20 36.4 C L 53 L 14 110/70 100 12/13/18 12:05 36.4 C L 51 L 15 106/62 100 12/13/18 11:55 36.4 C L 55 L 15 119/62 100 12/13/18 11:45 36.3 C L 561 H 10 L 100/53 L 100 12/13/18 11:35 36.3 C L 53 L 14 106/60 100 12/13/18 11:25 36.3 C L 58 L 13 140/51 L 100 12/13/18 11:16 36.3 C L 66 16 138/91 99 Pain Intensity Abdomen: Pain Intensity: 4 Notes Mental Status: alert / awake / arousable and participated in evaluation Patient Amnestic to Procedure: Yes Nausea / Vomiting: adequately controlled Pain: adequately controlled Airway Patency, RR, SpO2: stable & adequate BP & HR: stable & adequate Hydration State: stable & adequate Anesthetic Complications: no major complications apparent and Pt Satisfied with anesthetic care
[2018-12-14 08:24] LABS: BUN Creatinine Ratio 15.8 (10-20); Calcium 7.6 mg/dl (8.5-10.1); Creatinine Clr Calc Pharmacy 95.6 ml/min; Est GFR (African American) 125.3; Est GFR (Non-African American) 108.2; Potassium 3.6 mmol/L (3.5-5.1)
[2018-12-14] MEDS: IBUPROFEN 600 MG TAB PO PRN ×2 (10:35→19:02)
[2018-12-15] MEDS: IBUPROFEN 600 MG TAB PO PRN ×3 (02:56→20:51)
[2018-12-15] MEDS: LACTATED RINGER'S 1,000 ML IV SCH ×2 (05:37→20:55)
[2018-12-15] MEDS: ACETAMINOPHEN 1,000 MG/100 ML VIAL IV SCH ×3 (05:38→22:02)
[2018-12-15 06:17] LABS: Basophils # (auto) 0.01 K/uL (0-0.2); Basophils % (auto) 0.2 %; Eosinophils # (auto) 0.19 K/uL (0-0.5); Eosinophils % (auto) 3.3 %; Hematocrit (blood only) 30.2 % (37-47); Hemoglobin 10.4 g/dL (12.0-16.0); Lymphocytes # (auto) 1.48 K/uL (1.2-3.4); Lymphocytes % (auto) 25.9 %; Mean Corpuscular Hemoglobin 28.3 pg (25-34); Mean Corpuscular Hgb Conc 34.4 g/dL (32-36); Mean Corpuscular Volume 82.1 fL (80-100); Mean Platelet Volume 9.8 fL (7.4-10.4); Monocytes # (auto) 0.44 K/uL (0.11-0.59); Monocytes % (auto) 7.7 %; Neutrophils % (auto) 62.9 %; Platelet Count 184 K/uL (130-400); RDW Coefficient of Variation 13.2 % (11.5-14.5); RDW Standard Deviation 39.9 fL (36.4-46.3); Red Blood Count 3.68 M/uL (4.2-5.4); White Blood Count 5.72 K/uL (4.8-10.8)
[2018-12-15 06:56] LABS: BUN Creatinine Ratio 12.4 (10-20); Calcium 8.1 mg/dl (8.5-10.1); Creatinine Clr Calc Pharmacy 101.8 ml/min; Est GFR (Non-African American) 110.4; Potassium 3.6 mmol/L (3.5-5.1)
[2018-12-15] MEDS: ENOXAPARIN INJ 40 MG/0.4 ML SYR SQ SCH (08:15)
--- NOTE | 2018-12-15 09:36 | Surgery Progress Note ---
Date of Service December 15, 2018 Assessment & Plan (1) History of diverticulitis: s/p lap colectomy. Doing well. Will advance to full liquid diet today. Ambulating well. Keep AILYN drain for now. Will lower IVF to help with urine output, feeling of swelling. (2) Nodule of colon: Subjective POD#2 lap sigmoid. doing well with the switch to ibuprofen and tylenol for pain control. No nausea. Tolerated clears and hungry for more solid food. Passing flatus. Feeling more swollen and having high urine output - wondering about having her IVF lowered. pt POD 1 from lap sigmoid. doing well. 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 pain improving. no nausea currently. Review of Systems Review of Systems: All systems reviewed & are unremarkable except as noted in HPI & below Physical Exam Constitutional: WD/WN, vitals as above Respiratory: normal respiratory effort, lungs clear to auscultation Cardiovascular: RRR, no murmur, no edema Gastrointestinal (Abdomen): Inspection/Auscultation: normal bowel sounds Percussion/Palpation: + abdomen tender and abdomen soft; no guarding incision clean, AILYN drain with 150 cc serosanguinous fluid Neurologic: moves all extremities Psychiatric: A+Ox3, euthymic affect Results & Data Vital Signs (Past 12 Hours) Vital Signs Temp Pulse Resp BP Pulse Ox 12/15/18 07:24 36.8 C 57 L 16 129/76 96 12/14/18 23:26 36.8 C 60 16 114/64 93
[2018-12-16] MEDS: ACETAMINOPHEN 1,000 MG/100 ML VIAL IV SCH ×3 (05:59→21:28)
[2018-12-16 06:00] LABS: Basophils # (auto) 0.02 K/uL (0-0.2); Basophils % (auto) 0.4 %; Eosinophils # (auto) 0.45 K/uL (0-0.5); Hematocrit (blood only) 32.7 % (37-47); Hemoglobin 11.1 g/dL (12.0-16.0); Lymphocytes # (auto) 1.33 K/uL (1.2-3.4); Lymphocytes % (auto) 23.7 %; Mean Corpuscular Hgb Conc 33.9 g/dL (32-36); Mean Corpuscular Volume 82.6 fL (80-100); Mean Platelet Volume 9.8 fL (7.4-10.4); Monocytes # (auto) 0.48 K/uL (0.11-0.59); Monocytes % (auto) 8.6 %; Neutrophils # (auto) 3.33 K/uL (1.4-6.5); Neutrophils % (auto) 59.3 %; Platelet Count 195 K/uL (130-400); RDW Coefficient of Variation 13.1 % (11.5-14.5); RDW Standard Deviation 39.6 fL (36.4-46.3); Red Blood Count 3.96 M/uL (4.2-5.4); White Blood Count 5.61 K/uL (4.8-10.8)
[2018-12-16] MEDS: IBUPROFEN 600 MG TAB PO PRN ×3 (06:02→23:43)
[2018-12-16 06:40] LABS: BUN Creatinine Ratio 9.1 (10-20); Calcium 8.4 mg/dl (8.5-10.1); Creatinine Clr Calc Pharmacy 114.2 ml/min; Est GFR (African American) 132.9; Est GFR (Non-African American) 114.7; Potassium 3.6 mmol/L (3.5-5.1)
[2018-12-16] MEDS: ENOXAPARIN INJ 40 MG/0.4 ML SYR SQ SCH (08:18)
--- NOTE | 2018-12-16 10:35 | Surgery Progress Note ---
Date of Service December 16, 2018 Assessment & Plan (1) History of diverticulitis: s/p lap sigmoid POD#3. doing well. advance to low fiber diet continue pain management await bowel movement Subjective Feels well. Tolerated full liquids. Had some very loose/ liquid stool and gas. Pain well controlled. Physical Exam Constitutional: WD/WN, vitals as above Respiratory: normal respiratory effort, lungs clear to auscultation Cardiovascular: RRR, no murmur, no edema Gastrointestinal (Abdomen): normal bowel sounds, soft, nontender, no hepatosplenomegaly incision clean, AILYN drain serosanguinous Neurologic: moves all extremities Psychiatric: A+Ox3, euthymic affect Results & Data Vital Signs (Past 12 Hours) Vital Signs Temp Pulse Resp BP Pulse Ox 12/16/18 07:26 36.7 C 60 16 111/75 95 12/15/18 22:51 36.7 C 56 L 16 114/66 98
[2018-12-16] MEDS: LACTATED RINGER'S 1,000 ML IV SCH (21:26)
[2018-12-17] MEDS: ACETAMINOPHEN 1,000 MG/100 ML VIAL IV SCH ×3 (05:53→21:37)
[2018-12-17 06:59] LABS: Basophils # (auto) 0.01 K/uL (0-0.2); Basophils % (auto) 0.2 %; Eosinophils # (auto) 0.42 K/uL (0-0.5); Eosinophils % (auto) 9.1 %; Hematocrit (blood only) 33.8 % (37-47); Hemoglobin 11.5 g/dL (12.0-16.0); Immature Granulocytes # (auto) 0.01 K/uL (0.00-0.02); Immature Granulocytes % (auto) 0.2 %; Lymphocytes % (auto) 28.1 %; Mean Corpuscular Hemoglobin 27.8 pg (25-34); Mean Corpuscular Volume 81.6 fL (80-100); Mean Platelet Volume 9.8 fL (7.4-10.4); Monocytes # (auto) 0.38 K/uL (0.11-0.59); Monocytes % (auto) 8.2 %; Neutrophils # (auto) 2.51 K/uL (1.4-6.5); Neutrophils % (auto) 54.2 %; Platelet Count 218 K/uL (130-400); RDW Coefficient of Variation 12.9 % (11.5-14.5); RDW Standard Deviation 38.9 fL (36.4-46.3); Red Blood Count 4.14 M/uL (4.2-5.4); White Blood Count 4.63 K/uL (4.8-10.8)
[2018-12-17 07:31] LABS: BUN Creatinine Ratio 13.5 (10-20); Calcium 8.4 mg/dl (8.5-10.1); Creatinine Clr Calc Pharmacy 93.7 ml/min; Est GFR (African American) 124.5; Est GFR (Non-African American) 107.4; Potassium 3.7 mmol/L (3.5-5.1)
[2018-12-17] MEDS: ENOXAPARIN INJ 40 MG/0.4 ML SYR SQ SCH (08:44)
[2018-12-17] MEDS: IBUPROFEN 600 MG TAB PO PRN ×2 (08:45→16:44)
--- NOTE | 2018-12-17 10:03 | Surgery Progress Note ---
Date of Service December 17, 2018 Assessment & Plan (1) History of diverticulitis: Postoperative day #4, sigmoid colectomy Doing well Bowels have not moved yet Tolerating diet Pain control is good Subjective Postoperative day #4, status post sigmoid colectomy Bowels have not moved yet Abdominal discomfort is described as soreness Tolerating diet Denies nausea and vomiting AILYN drain had 65 cc out yesterday and has had 25 cc out over the last shift, all serosanguineous Physical Exam Gastrointestinal (Abdomen): Inspection/Auscultation: abdomen normal to inspection and + abdominal surgical incision (Clean, dry and intact); abdomen not distended Percussion/Palpation: + abdomen tender (Minimal and mostly inc isional) and abdomen soft Bowel sounds returning and of normal pitch Results & Data Vital Signs (Past 12 Hours) Vital Signs Temp Pulse Resp BP Pulse Ox 12/17/18 07:13 36.5 C 71 16 120/83 97 12/16/18 22:32 36.7 C 60 16 118/80 96 Laboratory Results 12/17/18 12/17/18 Range/Units 06:25 06:25 WBC 4.63 L (4.8-10.8) K/uL RBC 4.14 L (4.2-5.4) M/uL Hgb 11.5 L (12.0-16.0) g/dL Hct 33.8 L (37-47) % MCV 81.6 (80-100) fL MCH 27.8 (25-34) pg MCHC 34.0 (32-36) g/dL RDW Std Deviation 38.9 (36.4-46.3) fL RDW Coeff of Linda 12.9 (11.5-14.5) % Plt Count 218 (130-400) K/uL MPV 9.8 (7.4-10.4) fL Immature Gran % (Auto) 0.2 % Neut % (Auto) 54.2 % Lymph % (Auto) 28.1 % Davidson % (Auto) 8.2 % Eos % (Auto) 9.1 % Baso % (Auto) 0.2 % Immature Gran # (Auto) 0.01 (0.00-0.02) K/uL Neut # (Auto) 2.51 (1.4-6.5) K/uL Lymph # (Auto) 1.30 (1.2-3.4) K/uL Davidson # (Auto) 0.38 (0.11-0.59) K/uL Eos # (Auto) 0.42 (0-0.5) K/uL Baso # (Auto) 0.01 (0-0.2) K/uL Sodium 140 (136-145) mmol/L Potassium 3.7 (3.5-5.1) mmol/L Chloride 107 (98-107) mmol/L Carbon Dioxide 28 (21-32) mmol/L Anion Gap 6.0 (3-11) BUN 7 (7-18) mg/dl Creatinine 0.50 L (0.6-1.2) mg/dl Est Cr Clr Drug Dosing 93.7 ml/min Est GFR ( Amer) 124.5 Est GFR (Non-Af Amer) 107.4 BUN/Creatinine Ratio 13.5 (10-20) Glucose 97 (70-99) mg/dl Calcium 8.4 L (8.5-10.1) mg/dl
[2018-12-17] MEDS: LACTATED RINGER'S 1,000 ML IV SCH (21:40)
[2018-12-18] MEDS: IBUPROFEN 600 MG TAB PO PRN (02:38)
[2018-12-18] MEDS: ACETAMINOPHEN 1,000 MG/100 ML VIAL IV SCH (06:01)
[2018-12-18] MEDS: ENOXAPARIN INJ 40 MG/0.4 ML SYR SQ SCH (08:50)
--- NOTE | 2018-12-18 09:15 | Surgery Progress Note ---
Date of Service December 18, 2018 Assessment & Plan (1) Nodule of colon: POD#5 laparoscopic sigmoid resection Tolerating low fiber diet and passing flatus/BM's Some induration sandra-LLQ incision, likely seroma, will send patient home on 7 day course of augmentin D/C IVF Pain controlled on Ibuprofen and Tylenol Remove surgical AILYN drain Will discharge to home today with plans to follow up in clinic within 1-2 weeks Subjective Patient had no acute events over night. States that her pain is well controlled with Tylenol and Ibuprofen. Tolerating diet advancement, currently on a low fiber diet. She denies any nausea/vomiting. Has been passing flatus and had her first bowel movement this AM. She endorses walking the halls every hour. States she has an area of tenderness and bruising around her LLQ incision. Physical Exam Physical Exam: awake, alert, no acute distress Constitutional: well developed and well nourished; no acute distress Gastrointestinal (Abdomen): Inspection/Auscultation: + abdominal surgical incision (c/d/i. Mild ecchymosis sandra LLQ incision with some induration & tenderness) and + abdominal surgical drain present (in RLQ with serosang. output) Percussion/Palpation: abdomen soft Results & Data Vital Signs (Past 12 Hours) Vital Signs Temp Pulse Resp BP Pulse Ox 12/18/18 08:22 36.7 C 87 18 127/94 95 12/17/18 22:58 36.7 C 71 16 124/84 98 PG Care Time/CCT Total # of Minutes Spent Total Time Spent with Patient: Total time spent is greater than 50% in coordination of care (as documented) at patient's floor/unit and/or counseling patient:
--- NOTE | 2018-12-18 10:00 | Discharge Summary ---
Date of Service December 18, 2018 Principal Diagnosis Nodule of colon History of diverticulitis Discharge Exam Awake & Alert Constitutional well developed, well nourished, cooperative and comfortable; no acute distress Respiratory normal respiratory effort; no respiratory distress and no labored breathing Cardiovascular Rate/Rhythm: regular rate Gastrointestinal (Abdomen) Inspection/Auscultation: + abdominal surgical incision (c/d/i with dermabond. some induration sandra-LLQ incision w mild ecchymosis) and + abdominal surgical drain present (in RLQ with serosangenious output); abdomen not distended Percussion/Palpation: + abdomen tender (mild tenderness sandra-LLQ incision, otherwise non-tender abdomen) and abdomen soft Discharge Data Allergies Allergy/AdvReac Type Severity Reaction Status Date / Time erythromycin base Allergy Mild RASH Verified 12/13/ 07:49 Sulfa (Sulfonamide Allergy Mild RASH Verified 12/13/ 07:49 Antibiotics) Procedures Performed Operation Date: 12/13/19 08:30 Actual Procedures p Laparoscopic Sigmoid Colon Resection and Sigmoidoscopy - Chaim Young, Hospital Course (1) Nodule of colon: This is a 58y F who underwent a laparoscopic assisted sigmoid colon resection with Dr. Young on 8/ due to history of multiple bouts of acute diverticulitis as well as having recent findings of a sigmoid nodule on coloscopy. The patient tolerated the procedure well without issues, see operative note for full details. Initially post op the patient's pain was managed with a dilaudid ROW BOSS that on POD#1 was transitioned to Ibuprofen and Tylenol with good pain control throughout her hospitalization. Batres catheter was removed and she was able to void spontaneously. Her diet was advanced on POD#1 to clear liquids of which she tolerated well. Once she endorsed passing fl atus she was advanced to full liquids and then to a low fiber diet of which was tolerated without nausea/abdominal pain. On POD#5 the patient passed a bowel movement. She endorsed some swelling and mild tenderness to touch of her left lower abdominal incision which on exam seemed consistent with a seroma. She was sent home on a 7 day course of Augmentin for this and was asked to follow up in clinic within 1-2 weeks for post-operative follow up and monitoring of surgical sites. Throughout her hospitalization the patient was ambulating and out of bed frequently. Her surgical incisions were clean/dry/intact. Her AILYN drain output remained serosanguineous and was removed prior to discharge. On 12/18/18 the patient was deemed stable for discharge to home. Total Time Total Time Spent Total Time Spent (In Minutes): 15 Discharge Plan Discharge Items Patient Disposition: Home - Self-Care Reason For Visit: Diverticulitis, Sigmoid Nodules Discharge Diagnosis: sigmoid colon resection Discharge Goals: Decrease discomfort, Diagnostic testing and Improve disease control Activity: Per 'Additional Instructions' section Lifting: No more than 10 pounds Bathing Comment: You may shower starting today Exercise/Sports: Wait until after follow-up appointment Driving/Machine Use: Resume 3 days after discharge Non-emergency contact: Surgeon Call non-emergency contact if: you have any medication questions, your symptoms worsen, your pain is not controlled, your pain is worsening, you have a fever, your temperature is above 101.5, your wound has increased redness, your wound has increased drainage and your wound pain has increased Follow-up/Referrals: Kaylee Fernandes MD [Primary Care Provider] - Chaim Young, [Surgeon] - (Please schedule a follow up in clinic within 1-2 weeks. You may call the office sooner if you have any questions/concerns.) Diet: Low Fiber Addtl Provider Instructions: You may continue to take Tylenol and Ibuprofen over the counter if needed for pain control. Please complete the full 7 day course of antibiotic. Prescriptions: New ibuprofen 600 mg tablet 600 mg PO Q6H PRN (Reason: pain) Qty: 20 RF: 0 amoxicillin-pot clavulanate 875-125 mg tablet 1 tab PO Q12H Qty: 14 RF: 0 Continued zolpidem [Ambien] 5 mg tablet 5 mg PO HS PRN (Reason: Sleep) Qty: 30 RF: 0 Thrive Le-Michele 2 cap PO QAM RF: 0 Stand-Alone Forms: [facility] [employer], [facility] Discharge Orders: Discharge Order (Routine); Ordered 12/18/18 Ordered By: Nettie Cordoba Admission Data Admit Date/Time: 12/13/18 11:26 Attending Provider: Chaim Young Admit Provider: Chaim Young Primary Care Provider: Kaylee Fernandes Service: Surgical Services
--- NOTE | 2018-12-21 07:17 | Coding Query ---
PATHOLOGY To promote full compliance with coding requirements relating to patient care, physician participation is requested in all cases of pm head cook uncertainty. Please assist us with the question(s) below: Please review the Pathology report and please document any relevant diagnosis(es) below. Thank you ! DIDIER Ibrahim [facility] Diagnosis(es): diverticulitis benign colon nodule MTDD
== END 2018-12-18 10:31 | disposition home or self-care (01) | DRG 330 ==
LOC: ASU 07:01 → 3N 11:26 → 3W 20:04